=== PATIENT | male | born 1955 | race African-American/Black ===

== ENCOUNTER 2023-04-26 16:58 | Emergency (ER) | payer MEDICARE, OTHER ==
[~2023-04-26] VITALS: Ht 180.3 cm; Wt 94.0 kg
[~2023-04-26 16:58] MED LIST: ALBU18HF2 IH
[2023-04-26 17:10] VITALS: O2SAT 100
[2023-04-26] MEDS ORDERED: TETANUS, DIPHTHERIA, PERTUSSIS VAC/PF 0.5ML (>10YR OLD) IM ONE (17:15)
[2023-04-26] MEDS ORDERED: MORPHINE SULFATE 10 MG/ML CPJ IM NR (17:30)
[2023-04-26] MEDS ORDERED: ONDANSETRON HCL 4MG/2ML INJ IV ONE (20:30)
[2023-04-26 21:23] VITALS: BP 165/79; PULSE 66; RESP 17; TEMP 98.4
== END 2023-04-26 21:48 | disposition short-term general hospital (02) ==
LOC: ER 16:58
DX: S82.252A Displaced comminuted fracture of shaft of left tibia, initial encounter for closed fracture (principal); J45.909 Unspecified asthma, uncomplicated; W19.XXXA Unspecified fall, initial encounter; Y93.89 Activity, other specified; Y92.89 Other specified places as the place of occurrence of the external cause; Y99.8 Other external cause status
CPT/HCPCS: 73590; 73600; 73620; 90715; 90471; 96372; 96374; 99285; J2405; J2270; Z7610

== ENCOUNTER 2023-08-30 08:21 | Emergency (ER) | payer MEDICARE, OTHER ==
[~2023-08-30] VITALS: Ht 188 cm; Wt 97.0 kg
[2023-08-30 08:40] VITALS: O2SAT 98
[2023-08-30 09:26] LABS: BASOPHILS % 0.5 % (0.0-2.0); EOSINOPHILS % 5.6 % (0.0-5.0); HEMATOCRIT. 35.8 % (42.0-52.0); HEMOGLOBIN. 11.7 g/dL (14.0-18.0); LYMPHOCYTES % 25.4 % (20.0-50.0); MEAN CORPUSCULAR HEMOGLOBIN 27.3 pg (28.0-32.0); MEAN CORPUSCULAR HGB CONC 32.5 g/dL (31.0-37.0); MEAN CORPUSCULAR VOLUME 83.8 fL (80.0-94.0); MONOCYTES % 8.1 % (2.0-8.0); NEUTROPHILS % 60.4 % (40.0-76.0); PLATELET 195 x1000/uL (130-400); RED BLOOD CELL COUNT 4.27 mill/uL (4.7-6.1); WHITE BLOOD COUNT 4.4 x1000/uL (4.5-11.0)
[2023-08-30] MEDS: KETOROLAC 30MG/ML VIAL IV STA (09:27)
[2023-08-30 09:43] LABS: ALANINE AMINOTRANSFERASE 10 IU/L (10-49); ALBUMIN 4.5 g/dL (3.2-4.8); ASPARTATE AMINOTRANSFERASE 18 IU/L (<34); BILIRUBIN TOTAL 0.4 mg/dL (0.1-1.0); CALCIUM 8.9 mg/dL (8.7-10.4); CARBON DIOXIDE 28 mEq/L (21-32); CHLORIDE 105 mEq/L (98-107); CREATININE 1.1 mg/dL (0.6-1.3); GLUCOSE 111 mg/dL (70-105); POTASSIUM 3.7 mEq/L (3.5-5.1); SODIUM 139 mEq/L (136-145); UREA NITROGEN BLOOD 14 mg/dL (9-23)
[2023-08-30] MEDS ORDERED: CLINDAMYCIN 600 MG in DEXTROSE 5% WATER 50 ML IV ONE (10:00)
[2023-08-30] MEDS: CLINDAMYCIN 600MG PREMIX 50 ML IV NR (10:27)
[2023-08-30 10:46] LABS: ERYTHROCYTE SEDIMENTATION RATE 13 mm/hr (0-20)
[2023-08-30] MEDS: VANCOMYCIN 1G PREMIX 200 ML IV SCH (11:50)
[2023-08-30 13:36] VITALS: BP 138/75; PULSE 81; RESP 18; TEMP 97.7
== END 2023-08-30 13:52 | disposition short-term general hospital (02) ==
LOC: ER 09:02 → CANBEDREQ 11:12 → ER 13:52
DX: L03.116 Cellulitis of left lower limb (principal); J45.909 Unspecified asthma, uncomplicated
CPT/HCPCS: 99285; 96365; 96375; 80053; 85025; 85651; 36415; 73610; 96368; J1885; J3370; J3490; J7060